=== PATIENT | male | born 1955 | race Caucasian/White ===

== ENCOUNTER 2022-05-02 12:48 | Emergency (ER) | payer MEDICARE ==
[~2022-05-02] VITALS: Ht 182.9 cm; Wt 104.5 kg
[2022-05-02 12:52] VITALS: BP 162/92
[2022-05-02] MEDS ORDERED: BEBTELOVIMAB 175 MG/2 ML VIAL IV ONE (14:25)
== END 2022-05-02 16:03 | disposition home or self-care (01) ==
LOC: ER 12:48
DX: U07.1 COVID-19 (principal); R05.9 Cough, unspecified; R19.7 Diarrhea, unspecified; Z85.01 Personal history of malignant neoplasm of esophagus; Z88.8 Allergy status to other drugs, medicaments and biological substances
CPT/HCPCS: 99283; M0222; Q0222